=== PATIENT | female | born 1995 | race Caucasian/White ===

== ENCOUNTER → 2023-02-26 | Outpatient (CLI) | payer OTHER ==
--- NOTE | 2023-02-26 14:47 | NUR ---
Pt Marisol Moncada, in for outpatient consult p referral from [facility]. She is accompanied by her 18 day old baby girl, Estephania Moncada, and her spouse Abhishek Moncada. Pt c/o sore nipples, misshapen nipples p bf, frequent feeds and need for supplement p bf. Estephania was born by c/section on 02[birth year] and weighed 7# 14oz per pt statement, and her most recent weight was 7.9# on 02/24/23. Today Estephania weighs 7# 14.8oz (3594 gms; 7.925#), so very little weight gain over the last 2 days. The family's current feeding plan includes 8+ times daily, followed by 1-2oz EBM or formula p Bf and then pumping. Pt collects 0.5-2oz depending on when Estephania last fed. Amounts collected over the last 3 days ranges from 5.5-11oz daily. Estephania reportedly has qs voids and stools once routine supplement was established. LC evaluates Estephania's oral anatomy and finds a high palate, possible posterior tongue tie and upper lip tie, and that her tongue does not remain across the gum line while suck evaluation performed, causing biting. Estephania latches well here, pt denies pain, however her effort and swallow frequency diminish p 5-7 minutes. Post weight gain is 1.6oz (48 gms). She is then fed ~1.5oz formula by bottle. Intake goals for Estephania's size is about 24oz per day. 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 Recommendation: Have oral tethers evaluated, providers discussed. Continue current feeding plan of breast/supplement 1-2oz EBM or formula/pump each feeding (8 or more times daily). F/U: One week with this LC to evaluate milk transfer and improvement of milk volume and if Estephania was evaluated for oral tethers per family's preference. Questions invited and answered.
== END ==
LOC: LAC 05:23
DX: Z39.1 Encounter for care and examination of lactating mother (principal); Z71.89 Other specified counseling